=== PATIENT | female | born 1995 | race Caucasian/White ===

== ENCOUNTER 2023-09-08 12:29 | Emergency (ER) | payer OTHER, SELFPAY ==
[2023-09-08 12:38] VITALS: BP 141/98; PULSE 99; RESP 18; TEMP 37.2; O2SAT 99; BMI 22.3
--- NOTE | 2023-09-08 13:03 | ED.WOUNDLAC ---
HPI - Wound/Laceration General Time Seen by Provider: 13:03 Chief Complaint: Laceration/Wound Stated Complaint: leg lac Time Seen by Provider: 09/08/23 12:33 Source: patient Mode of arrival: ambulatory Limitations: no limitations History of Present Illness HPI narrative: Diann is a 28-year-old female presents emerged department via private car and self with a left leg laceration. Patient states a co-worker was caring a sycthe cutting tool for weeds and accidentally cut the patient left leg. Patient applied pressure right away to control the bleeding. Patient is unsure about her last tetanus. Patient had been doing well otherwise. Related Data Home Medications ?Medication ?Instructions ?Recorded ?Confirmed No Known Home Medications 09/08/23 09/08/23 Allergies Allergy/AdvReac Type Severity Reaction Status Date / Time No Known Drug Allergies Allergy Verified 09/08/23 12:38 Review of Systems Status of ROS: Reports: 10 or more systems reviewed and unremarkable except as noted in History and below PFSH PFS Social History Smoking Status: Never smoker How often do you have a drink containing alcohol: never AUDIT-C Alcohol total score: 0 Non-prescribed substance use: marijuana (any form) Exam Narrative: Exam Narrative: General: No obvious distress HEENT: Pupils equal round reactive to light, extraocular muscles intact Lung: Clear to auscultation bilateral Heart normal sinus rhythm S1-S2 Muscle skeletal: Proximal left thigh, 6 cm clean horizontal laceration to the subcutaneous tissue, bleeding controlled. Neuro: Alert awake and oriented x3 Const: Vital Signs, click to edit/add: Vital Signs - 24 hr 09/08/23 12:38 Temperature 98.9 F Pulse Rate [Pulse Oximeter] 99 Respiratory Rate 18 Blood Pressure [Ri ght Upper Arm] 141/98 H Pulse Oximetry 99 Oxygen Delivery Me thod Room Air Course Course ED Course: AIDET performed. vitasls are normal. Patient will be updated on her tetanus status, will plan to do laceration repair please see procedure, patient is doing well otherwise. Reevaluation(s) Time of Reevaluation #1: 13:55 Reevaluation #1: Laceration complete, patient was updated on her tetanus status, written instructions give, she will have suture removed in 7-10 days time, reasons return were given. Vital Signs Vital signs: Initial Vital Signs Temperature 98.9 F 09/08/23 12:38 Temperature Source Temporal Artery Scan 09/08/23 12:38 Pulse Rate 99 09/08/23 12:38 Respiratory Rate 18 09/08/23 12:38 Blood Pressure 141/98 H 09/08/23 12:38 Blood Pressure Mean 112 H 09/08/23 12:38 Blood Pressure Position Sitting 09/08/23 12:38 Pulse Oximetry 99 09/08/23 12:38 Oxygen Delivery Method Room Air 09/08/23 12:38 Vital Signs Temperature 98.9 F 09/08/23 12:38 Pulse Rate 99 09/08/23 12:38 Respiratory Rate 18 09/08/23 12:38 Blood Pressure 141/98 H 09/08/23 12:38 Pulse Oximetry 99 09/08/23 12:38 Oxygen Delivery Method Room Air 09/08/23 12:38 Temperature 98.9 F 09/08/23 12:38 Pulse Rate 99 09/08/23 12:38 Respiratory Rate 18 09/08/23 12:38 Blood Pressure 141/98 H 09/08/23 12:38 Pulse Oximetry 99 09/08/23 12:38 Oxygen Delivery Method Room Air 09/08/23 12:38 Medications Administered Medications: Discontinued Medications Generic Name Dose Route Start Last Admin Trade Name Freq PRN Reason Stop Dose Admin Diphtheria/Tetanus/Acell Pertussis 0.5 ml 09/08/23 13:02 09/08/23 13:24 Tetanus/Diphth/Pertussis 0.5 Ml Syringe IM 09/08/23 13:03 0.5 ml .ONCE ONE Administration Discharge Plan Discharge Clinical Impression: Laceration of left leg Patient Disposition: Home, Self-Care Condition: Improved Instructions: Laceration (ED), Laceration (DC) Additional Instructions: Application of bacitracin or Vaseline to the area, keep covered over the next 24-48 hours, have sutures removed in the next 7-10 days time, return if any worsening pain, swelling, redness or discharge. Activity Level: No Restrictions Prescriptions: No Action No Known Home Medications Follow Up/Referrals: Provider,Not a Local [Primary Care Provider] - Stand Alone Forms: [employer] Info Instructions Procedures Laceration Laceration 1: Pre procedure diagnosis: leg laceration Post procedure diagnosis: leg laceration Verification/time out: correct patient Site: lower extremity Side (If applicable): left Size (cm): 6 Description: linear Depth: simple, single layer Local Anesthetic: lidocaine 1% and with epi Amount of anesthesia used (mL): 4 Pre-repair: wound explored Skin layer closed with: nylon Size (cm): 4-0 Number of sutures: 7 Technique: simple, interrupted Subcutaneous layer closed with: Vicryl Size: 4-0 Number of sutures: 1
[2023-09-08] MEDS: TETANUS/DIPHTH/PERTUSSIS 0.5 ML SYRINGE IM (13:24)
== END 2023-09-08 14:00 | disposition home or self-care (01) ==
PROVIDERS: Emergency Provider Student in an Organized Health Care Education/Training Program
DX: S71.112A Laceration without foreign body, left thigh, initial encounter (principal); W29.3XXA Contact with powered garden and outdoor hand tools and machinery, initial encounter
CPT/HCPCS: 12002; 90471; 90715; 99283; 99284

== ENCOUNTER 2023-09-16 10:46 | Emergency (ER) | payer OTHER, SELFPAY ==
[2023-09-16 10:50] VITALS: BP 132/88; RESP 18; O2SAT 99; BMI 22.3
--- NOTE | 2023-09-16 11:11 | ED_ITS ---
HPI - General Adult General Date Seen: 09/16/23 Chief complaint: Skin/Abscess/Foreign Body Stated complaint: Sutures removal Time Seen by Provider: 09/16/23 11:03 Source: patient Mode of arrival: ambulatory Limitations: no limitations History of Present Illness HPI narrative: Patient is a 28-year-old who had sutures placed in her left thigh last week, 8 days ago, after an injury at work. Wound is healing well, no concerns. Here for suture removal Related Data Home Medications ?Medication ?Instructions ?Recorded ?Confirmed No Known Home Medications 09/08/23 09/08/23 Allergies Allergy/AdvReac Type Severity Reaction Status Date / Time No Known Drug Allergies Allergy Verified 09/08/23 12:38 PFSH PFSH Social History Smoking Status: Never smoker How often do you have a drink containing alcohol: never AUDIT-C Alcohol total score: 0 Non-prescribed substance use: marijuana (any form) Exam Narrative: Exam Narrative: Nicely healed laceration left thigh. No evidence of infection Const: Vital Signs, click to edit/add: Vital Signs - 24 hr 09/16/23 10:50 Respiratory Rate 18 Blood Pressure [Ri ght Upper Arm] 132/88 Pulse Oximetry 99 Oxygen Delivery Me thod Room Air Course Course ED Course: 6 simple interrupted sutures were removed. Tolerated well. Vital Signs Vital signs: Initial Vital Signs Respiratory Rate 18 09/16/23 10:50 Blood Pressure 132/88 09/16/23 10:50 Blood Pressure Mean 102 09/16/23 10:50 Blood Pressure Position Sitting 09/16/23 10:50 Pulse Oximetry 99 09/16/23 10:50 Oxygen Delivery Method Room Air 09/16/23 10:50 Vital Signs Respiratory Rate 18 09/16/23 10:50 Blood Pressure 132/88 09/16/23 10:50 Pulse Oximetry 99 09/16/23 10:50 Oxygen Delivery Method Room Air 09/16/23 10:50 Respiratory Rate 18 09/16/23 10:50 Blood Pressure 132/88 09/16/23 10:50 Pulse Oximetry 99 09/16/23 10:50 Oxygen Delivery Method Room Air 09/16/23 10:50 Discharge Plan Discharge Clinical Impression: Encounter for removal of sutures Patient Disposition: Home, Self-Care Condition: Stable Instructions: Stitches Removal (ED) Additional Instructions: Recommend sunscreen use for the next 6 months or so as the scar continues to mature. Return if needed for any other concerns. Prescriptions: No Action No Known Home Medications Follow Up/Referrals: Provider,Not a Local [Primary Care Provider] - Stand Alone Forms: [employer] Info Instructions
== END 2023-09-16 11:30 | disposition home or self-care (01) ==
LOC: ED 11:26
PROVIDERS: Emergency Provider Emergency Medicine
DX: Z48.02 Encounter for removal of sutures (principal); Y99.0 Civilian activity done for income or pay
CPT/HCPCS: 99281; 99282